=== PATIENT | male | born 1940 | race Caucasian/White ===

== ENCOUNTER → 2017-04-21 | Outpatient (CLI) | payer MEDICARE, OTHER ==
[~2017-04-21] MED LIST: CIALIS5 MG PO; FORTESTA10 MG/0.5 TP; GLUCOSAMINE & C1 CA1 PO; IMITREX50 MG PO; MULTIPLE VITAMI1 CAP PO; PRIL40 PO; PRILOSEC 20MG20 MG PO; RITE AID KRILL500 MG PO; TENORMIN 2525 MG/TAB PO; TENORMIN 5050 MG/TAB PO; TRICOR145 MG PO; TYLENOL 325MG325 MG PO; ULTRAM 50MG TAB50 MG PO; VIAGRA100 MG PO
== END ==
LOC: COL.RAD 10:52
DX: M25.551 Pain in right hip (principal); M53.3 Sacrococcygeal disorders, not elsewhere classified
CPT/HCPCS: G0260; J3301

== ENCOUNTER 2021-09-14 09:45 | Outpatient (RCR) | payer MEDICARE, OTHER | END 2021-09-16 | disposition home or self-care (01) | LOC: PT.GENESIS | DX: M46.1 Sacroiliitis, not elsewhere classified (principal) ==

== ENCOUNTER 2021-10-15 15:15 | Outpatient (RCR) | payer MEDICARE, OTHER | END 2021-10-17 | disposition still patient (30) | LOC: PT.GENESIS | DX: M46.1 Sacroiliitis, not elsewhere classified (principal) ==